=== PATIENT | female | born 1955 | race Hispanic/Latino ===

== ENCOUNTER 2023-09-06 14:34 | Emergency (ER) | payer MEDICARE, OTHER ==
[~2023-09-06] VITALS: Ht 152.4 cm; Wt 89.4 kg
[2023-09-06 14:55] VITALS: O2SAT 97
== END 2023-09-06 19:00 | disposition home or self-care (01) ==
LOC: ER 14:43
DX: R51.9 Headache, unspecified (principal); S00.83XA Contusion of other part of head, initial encounter; S60.221A Contusion of right hand, initial encounter; S00.31XA Abrasion of nose, initial encounter; M25.561 Pain in right knee; W01.0XXA Fall on same level from slipping, tripping and stumbling without subsequent striking against object, initial encounter; Y93.01 Activity, walking, marching and hiking; Y92.89 Other specified places as the place of occurrence of the external cause; I10 Essential (primary) hypertension
CPT/HCPCS: 70450; 70486; 72125; 99284

== ENCOUNTER 2025-01-20 08:53 | Outpatient (RCR) | payer MEDICARE | END 2025-02-16 | LOC: PT 08:53 | PROVIDERS: ATTEND Specialist | DX: S39.012D Strain of muscle, fascia and tendon of lower back, subsequent encounter (principal); R53.81 Other malaise ==